=== PATIENT | female | born 1945 | race Hispanic/Latino ===

== ENCOUNTER 2017-02-28 09:27 | Emergency (ER) | payer MEDICARE, OTHER ==
[2017-02-28 09:47] VITALS: RESP 18; TEMP 97.9; BMI 29.2
--- NOTE | 2017-02-28 09:55 | ED PDOC ---
Arrival/HPI - General Time Seen by Provider: 02/28/17 09:36 - History of Present Illness Narrative History of Present Illness (Text): 02/28/17 09:51 71yo female win the ER after a mechanical fall on 02/17. Pt states she has a hx of chronic back pain, which has gotten worst after the fall. Denies head injury , or LOC. States she has no HAs, no n/v. States she has L. humerus bruising with no pain, along with L. knee discomfort when she ambulates. Denies any other trauma/injury/complaints. Past Medical History - Provider Review Nursing Documentation Reviewed: Yes - Infectious Disease Hx of Infectious Diseases: None - Reproductive Menopause: Yes - Cardiac Hx Hypertension: Yes - Musculoskeletal/Rheumatological Hx Back Pain: Yes Other/Comment: neuropathy - Psychiatric Hx Substance Use: No - Surgical History Hx Orthopedic Surgery: Yes - Anesthesia Hx Anesthesia Reactions: No Family/Social History Family/Social History: Unknown Family HX Smoking Status: Unknown If Ever Smoked Hx Alcohol Use: No Hx Substance Use: No Allergies/Home Meds Allergies/Adverse Reactions: Allergies No Known Allergies Allergy (Verified 06/02/12 13:14) Home Medications: Home Meds Medication Instructions Recorded Confirmed Aspirin [Lo-Dose Aspirin EC] 81 mg PO DAILY 02/28/17 02/28/17 Fluticasone/Salmeterol [Advair 1 puff PO DAILY 02/28/17 02/28/17 250-50 Diskus] Gabapentin [Neurontin] 600 mg PO TID 02/28/17 02/28/17 Losartan [Cozaar] 100 mg PO DAILY 02/28/17 02/28/17 Pravastatin Sodium [Pravachol] 40 mg PO DAILY 02/28/17 02/28/17 Zolpidem [Ambien] 5 mg PO DAILY 02/28/17 02/28/17 amLODIPine [Norvasc] 5 mg PO DAILY 02/28/17 02/28/17 Physical Exam - Physical Exam Narrative Physical Exam (Text): 02/28/17 09:55 - Review of Systems Constitutional: Normal. absent: Fatigue, Weight Change, Fevers Eyes: Normal ENT: denies sore throat, denies tristhmus Respiratory: Normal. absent: SOB, Cough, Sputum Cardiovascular: absent: Chest Pain, Palpitations, Syncope Gastrointestinal: Normal. absent: Abdominal Pain, Diarrhea, Nausea, Vomiting Genitourinary: Normal. absent: Dysuria, Frequency, Hematuria, vaginal bleeding Musculoskeletal: Arthralgias, Back Pain. absent: Neck Pain Skin: no rashes, no erythema Neurological: absent: Focal Weakness Endocrine: Normal Hemo/Lymphatic: Normal Psychiatric: No suicidal or homicidal ideations Physical exam Patient appears age appropriate in no distress, speaking full sentences without difficulty Head atraumatic. No nasal bone deformity or tenderness, no facial or jaw pain/ swelling. No neck midline tenderness, thoracic and lumbar spine with no midline tenderness. Pt moving b/l upper and lower extremities without difficulty, 5/5 strength, with full active and passive ROM. Distal neurovasc fully intact. Abd soft/nt/ng, no hematomas, no peritoneal signs. Neg. pelvic rock. Bruising noted over the L. knee and L. humerus. No decrease in ROM. - Systems Exam Head: Present: Atraumatic, Normocephalic Pupils: Present: PERRL Extroacular Muscles: Present: EOMI Conjunctiva: Present: Normal Mouth: Present: Moist Mucous Membranes Neck: Present: Normal Range of Motion. No: MIDLINE TENDERNESS, Paraspinal Tenderness Respiratory/Chest: Present: Clear to Auscultation, Good Air Exchange. No: Respiratory Distress, Accessory Muscle Use, Tachypneic Cardiovascular: Present: Regular Rate and Rhythm, Normal S1, S2, Peripheal Pulses Present. No: Murmurs Abdomen: Present: Normal Bowel Sounds. No: Tenderness, Distention, Peritoneal Signs, Rebound, Guarding Back: Present: Paraspinal Tenderness. No: Midline Tenderness Upper Extremity: Present: Normal Inspection. No: Cyanosis, Edema Lower Extremity: Present: Normal Inspection. No: Edema Neurological: Present: GCS=15, Speech Normal, cranial nerves II through XII fully intact with no cerebellar abnormality, neurosensory fully intact. No focal neurological deficits. Skin: Present: Warm, Dry, Normal Color. No: Rashes Lymphatic: Present: OX3, NI, NC Psychiatric: Present: Alert, Oriented x 3, Normal Insight, Normal Concentration Vital Signs Reviewed: Yes Vital Signs Temp Pulse Resp BP Pulse Ox 02/28/17 10:47 70 18 142/61 99 02/28/17 09:37 97.9 F 83 18 137/65 100 Temperature: Afebrile Blood Pressure: Normal Pulse: Regular Respiratory Rate: Normal Appearance: Positive for: Well-Appearing Pain Distress: None Mental Status: Positive for: Alert and Oriented X 3 Medical Decision Making ED Course and Treatment: 02/28/17 10:00 71yo female with back pain, L. knee and L. humeral bruising after a mechanical fall on 02/17. No head injury or trauma, no focal neurological deficits on examination. CT LS and xrays, along with pain meds ordered 02/28/17 11:17 no acute findings on CT and xrays, per radiology read pt ambulates without assistance in the ER states she feels comfortable being dc'd home with f/u with Stacie Ronquillo and Veronica f/u had an extensive d/w pt that although xrays are negative for any acute bony abnormality, it is still very important to fu with pmd and ortho specialist for further w/u and testing such as MRI to r/o any ligamentous/tendenous/meniscal injury. Pt verbalized full understanding of above discussion. Pt states she understands to return to the ER right away for new or worsening symptoms or for inability to f/u with PMD or specialist as instructed. Patient states that she fully agrees with and understands discharge instructions. States that she agrees with the plan and disposition. Verbalized and repeated discharge instructions and plan. I have given the patient opportunity to ask any additional questions. 02/28/17 10:47 CT Lumbar Spine without contrast Creator : Farhad Gaona MD FINDINGS: VERTEBRAE: Unremarkable. No fracture. Normal alignment. DISCS/SPINAL CANAL/NEURAL FORAMINA: L1-2: Severe disc degeneration. Mild stenosis L2-3: Severe disc degeneration. Moderate stenosis L3-4: Severe disc degeneration with severe central stenosis. Ligamentum flavum hypertrophy and facet arthropathy. L4-5: Severe disc degeneration with severe central stenosis and severe right- sided foraminal stenosis L5-S1: Severe disc bulge with bilateral foraminal stenosis and moderate to severe central stenosis PARASPINAL SOFT TISSUES: Unremarkable. OTHER FINDINGS: There is curvature of the spine convex to the left IMPRESSION: Severe multilevel disc degeneration. Severe spinal stenosis at L3-4 and L4-5. See comments 02/28/17 11:17 Left Knee Radiographs Creator : Farhad Gaona MD FINDINGS: BONES: Normal. No fracture. JOINTS: Normal. No osteoarthritis. JOINT EFFUSION: None. OTHER FINDINGS: There is soft tissue swelling anterior to the patella and patellar tendon. IMPRESSION: No evidence of fracture. 02/28/17 11:18 Radiographs of the left humerus Creator : Farhad Gaona MD IMPRESSION: Normal radiographs of left humerus. - RAD Interpretation Radiology Orders: 02/28/17 09:48 LUMBAR SPINE W/O CONTRAST [CT] Stat HUMERUS LEFT [RAD] Stat KNEE WITH PATELLA LEFT 3 VIEW [RAD] Stat - Medication Orders Current Medication Orders: Discontinued Medications Ketorolac Tromethamine (Toradol) 30 mg IM STAT STA Stop: 02/28/17 09:49 Last Admin: 02/28/17 10:04 Dose: 30 mg MAR Pain Assessment Document 02/28/17 10:04 EQ (Rec: 02/28/17 10:04 EQ [facility] [id number]) Pain Reassessment Is this a pain reassessment? No Sleep Is patient sleeping during reassessment? No Presence of Pain Presence of Pain Yes Pain Scale Used Pain Scale Used Numeric IM Administration Charges Document 02/28/17 10:04 EQ (Rec: 02/28/17 10:04 EQ [facility] [id number]) Charges for Administration # of IM Administrations 1 Disposition/Present on Arrival - Present on Arrival Any Indicators Present on Arrival: No History of DVT/PE: No History of Uncontrolled Diabetes: No Urinary Catheter: No History of Decub. Ulcer: No History Surgical Site Infection Following: Orthopedic Procedures - Disposition Have Diagnosis and Disposition been Completed?: Yes Diagnosis: Fall Disposition: HOME/ ROUTINE Disposition Time: 11:19 Patient Plan: Discharge Patient Problems: Current Active Problems Problem Status Onset Fall Acute Condition: GOOD Discharge Instructions (ExitCare): Fall Prevention for Older Adults (ED) Additional Instructions: PLEASE RETURN TO THE EMERGENCY DEPARTMENT FOR NEW OR WORSENING SYMPTOMS. RETURN RIGHT AWAY IF YOU CANNOT FOLLOW UP WITH YOUR PRIMARY CARE DOCTOR, CLINIC, OR SPECIALIST IN 1-2 DAYS. Please take [id number] Motrin or Tylenol for pain Referrals: PCP,NO [Primary Care Provider] - Follow up with primary Samantha Caldera MD [Staff Provider] - Follow up with primary
--- NOTE | 2017-02-28 10:45 | CT ---
PROCEDURE: CT Lumbar Spine without contrast HISTORY: fall COMPARISON: None. TECHNIQUE: Axial computed tomography images were obtained of the lumbar spine without the use of intravenous contrast. Coronal and sagittal reformatted images were created and reviewed. Radiation dose: Total exam DLP = 938 mGy-cm. This CT exam was performed using one or more of the following dose reduction techniques: Automated exposure control, adjustment of the mA and/or kV according to patient size, and/or use of iterative reconstruction technique. FINDINGS: VERTEBRAE: Unremarkable. No fracture. Normal alignment. DISCS/SPINAL CANAL/NEURAL FORAMINA: L1-2: Severe disc degeneration. Mild stenosis L2-3: Severe disc degeneration. Moderate stenosis L3-4: Severe disc degeneration with severe central stenosis. Ligamentum flavum hypertrophy and facet arthropathy. L4-5: Severe disc degeneration with severe central stenosis and severe right-sided foraminal stenosis L5-S1: Severe disc bulge with bilateral foraminal stenosis and moderate to severe central stenosis PARASPINAL SOFT TISSUES: Unremarkable. OTHER FINDINGS: There is curvature of the spine convex to the left IMPRESSION: Severe multilevel disc degeneration. Severe spinal stenosis at L3-4 and L4-5. See comments
[2017-02-28 10:49] VITALS: BP 142/61; PULSE 70; O2SAT 99
--- NOTE | 2017-02-28 11:16 | RAD ---
PROCEDURE: Left Knee Radiographs. HISTORY: Pain. COMPARISON: None. FINDINGS: BONES: Normal. No fracture. JOINTS: Normal. No osteoarthritis. JOINT EFFUSION: None. OTHER FINDINGS: There is soft tissue swelling anterior to the patella and patellar tendon. IMPRESSION: No evidence of fracture.
--- NOTE | 2017-02-28 11:17 | RAD ---
PROCEDURE: Radiographs of the left humerus. HISTORY: fall COMPARISON: None. FINDINGS: BONES: Normal. No fracture or focal lesion. SOFT TISSUES: Normal. OTHER FINDINGS: None. IMPRESSION: Normal radiographs of left humerus.
== END 2017-02-28 11:35 | disposition home or self-care (01) ==
LOC: ED 09:27
DX: Z03.89 Encounter for observation for other suspected diseases and conditions ruled out (principal); W19.XXXA Unspecified fall, initial encounter
CPT/HCPCS: 72131; 73060; 73562; 96372; 99284; J1885